=== PATIENT | male | born 1965 | race Two or more races ===

== ENCOUNTER 2017-03-06 16:07 | Emergency (ER) | payer OTHER ==
[2017-03-06 16:14] VITALS: O2SAT 98
[2017-03-06] MEDS ORDERED: KETOROLAC 30 MG/1 ML SDV IVP ONE (16:21)
[2017-03-06] MEDS ORDERED: ONDANSETRON 4 MG/2 ML VIAL IVP ONE (16:21)
[2017-03-06] MEDS ORDERED: NS 1,000 ML IV ONE (16:21)
--- NOTE | 2017-03-06 16:22 | EDPHY ---
H & P Stated Complaint: r flank and lower quad pain with hx kidney stones Source: Patient Exam Limitations: No limitations - Personal History Current Tetanus/Diphtheria Vaccine: Yes - Medical/Surgical History Hx Asthma: No Hx Chronic Respiratory Disease: No Hx Diabetes: No Hx Cardiac Disease: No Hx Renal Disease: No Hx Cirrhosis: No Hx Alcoholism: No Hx HIV/AIDS: No Hx Splenectomy or Spleen Trauma: No Other PMH: kidney stones - Social History Smoking Status: Never smoked Time Seen by Provider: 03/06/17 16:20 HPI/ROS: HPI: This is a 51-year-old male who presents with Chief Complaint: Right lower quadrant and right flank pain since 9:00 a.m. Location: Right lower quadrant and right flank Quality: Pain Duration: Since 9:00 a.m. (7 hours) Signs and Symptoms: no fever, no nausea, no vomiting, no hematemesis, no blood in stool, no abdominal bloating, no diarrhea, no back pain, no urinary symptoms , no testicular/groin pain, no indigestion, no chest pain, no shortness of breath Timing: Sudden, waxes and wane Severity: Moderate Context: Patient has a history of kidney stones, last seen in the emergency room 2 years ago at this facility that was not able to pass on its own and required surgery per patient while he was in [place], presents with complaints of sudden onset of right flank and right lower quadrant pain that started around 9:00 a.m. pain is described as initially sharp, nonradiating in nature, but it waxed and wane. Patient took some Advil with some mild relief. Was at work when the pain started. Denies any heavy lifting/injury/back pain/ radiculopathy/weakness. Patient reports that he ate 2 meals today without difficulty or nausea and vomiting. Last urination was 2 hr prior to arrival. Has not seen any blood in his urine. Patient in the past had [employer] insurance but he no longer does. He would like to establish care with a local urologist. Modifying Factors: Abdomen mild relief Comment: ROS: see HPI Constitutional: No fever, no chills, no weight loss Eyes: No blurred vision Respiratory: No shortness of breath, no cough Cardiovascular: No chest pain, no palpitations Gastrointestinal: No nausea, no vomiting, no diarrhea, no hematemesis, no blood in stool Genitourinary: No dysuria, no blood in urine Extremities: No myalgias, no edema Neurologic: No weakness, no numbness Skin: No rashes, no petechiae Hematologic: No bruising, no bleeding MEDICAL/SURGICAL/SOCIAL HISTORY: Medical history: Kidney stone Surgical history: Denies Social history: Employed CONSTITUTIONAL: Well-appearing nontoxic overweight male, awake and alert, no obvious distress HEENT: Atraumatic and normocephalic, PERRL, EOMI. Tympanic membranes clear. Oropharynx clear, no exudate and moist pink mucosa. Airway patent. No lymphadenopathy. No meningismus. Cardiovascular: Normal S1/S2, regular rate, regular rhythm, without murmur rub or gallop. PULMONARY/CHEST: Symmetrical and nontender. Clear to auscultation bilaterally. Good air movement. No accessory muscle usage. ABDOMEN: Soft, nondistended, right flank and right lower quadrant tenderness, no rebound, no guarding, no peritoneal signs, no masses or organomegaly. No CVAT. EXTREMITIES: 2/2 pulses, strength 5/5, no deformities, no clubbing, no cyanosis or edema. NEUROLOGICAL: no focal neuro deficits. GCS 15. SKIN: Warm and dry, no erythema. no rash. Good capillary refill. (Milla Laboy) Constitutional: Initial Vital Signs Temperature (C) 36.5 C 03/06/17 16:11 Heart Rate 70 03/06/17 16:11 Respiratory Rate 17 03/06/17 16:11 Blood Pressure 129/89 H 03/06/17 16:11 O2 Sat (%) 98 03/06/17 16:11 O2 Delivery Mode Room Air Allergies/Adverse Reactions: No Known Allergies Allergy (Verified 03/06/17 16:11) Home Medications: Medication Instructions Recorded Ondansetron Odt [Zofran Odt 4 mg 4 mg PO Q4 PRN #12 tab 03/06/17 (*)] Tamsulosin HCl [Flomax 0.4 MG (*)] 0.4 mg PO DAILY #7 cap 03/06/17 Tylenol #3 (*) 03/06/17 oxyCODONE/APAP 5/325 [Percocet 1 - 2 tab PO Q4H PRN #20 tab 03/06/17 5/325 (*)] Medical Decision Making - Diagnostics Imaging Results: Imaging Impressions Abdomen/Pelvis CT 03/06/17 16:21 Impression: 1. Moderate right-sided hydronephrosis with perinephric stranding secondary to distal right ureteral calculus just above the UVJ measuring 4 x 4 x 5 mm. 2. No significant abnormality otherwise identified within the abdomen and pelvis. Attention: This CT examination is specifically designed to evaluate patients who are clinically suspected of having acute obstructive uropathy. This examination does not use radiographic contrast, and as such, provides only a limited evaluation of the abdomen, pelvis and retroperitoneum. If there is further clinical suspicion for pathological conditions other than obstructive uropathy, a complete CT evaluation of the abdomen and pelvis utilizing intravenous, oral, and rectal contrast should be considered. Findings discussed with Milla Laboy PAC at 16:58 hour, 03/06/2017. ED Course/Re-evaluation: Labs, urinalysis, IV fluids, IV medications, oral medications, CT abdomen and pelvis scan without contrast ordered As patient has a history kidney stones will evaluate for ureterolithiasis 1st and then if negative will evaluate for appendicitis Given 1 L normal saline, IV Toradol, p.o. Flomax, IV Dilaudid with adequate relief of pain Vital signs reviewed upon arrival and within normal limits. Labs reviewed: Creatinine 1.2; mild leukocytosis most likely reactive Called by Radiology who advised that CT abdomen and pelvis scan shows a 5 x 4 x 4 mm stone just above the right UVJ; [id number] hydronephrosis. Reassessed patient; pain controlled. Passed p.o. trial. Appropriate to treat outpatient This patient was seen under the supervision of my secondary supervising physician. I evaluated care for this patient independently. (Milla Laboy) I did not see this patient while he was in the emergency department. However his care was discussed with the PA while the patient was in the department. I agree with treatment plan and management (Eusebio Amin) Differential Diagnosis: Differential diagnosis includes but is not limited to nephrolithiasis, ureterolithiasis, shingles, appendicitis, diverticulitis, urinary tract infection, sepsis, musculoskeletal strain. (Milla Laboy) - Data Points Laboratory Results: Laboratory Results 03/06/17 16:29 03/06/17 16:29 03/06/17 03/06/17 03/06/17 16:53 16:29 16:29 WBC 12.09 10^3/uL H 10^3/uL (3.80-9.50) RBC 4.61 10^6/uL 10^6/uL (4.40-6.38) Hgb 15.1 g/dL g/dL (13.7-17.5) Hct 41.0 % % (40.0-51.0) MCV 88.9 fL fL (81.5-99.8) MCH 32.8 pg pg (27.9-34.1) MCHC 36.8 g/dL H g/dL (32.4-36.7) RDW 12.6 % % (11.5-15.2) Plt Count 282 10^3/uL 10^3/uL (150-400) MPV 9.5 fL fL (8.7-11.7) Neut % (Auto) 76.8 % H % (39.3-74.2) Lymph % (Auto) 14.1 % L % (15.0-45.0) [place] % (Auto) 7.9 % % (4.5-13.0) Eos % (Auto) 0.4 % L % (0.6-7.6) Baso % (Auto) 0.4 % % (0.3-1.7) Nucleat RBC Rel Count 0.0 % % (0.0-0.2) Absolute Neuts (auto) 9.27 10^3/uL H 10^3/uL (1.70-6.50) Absolute Lymphs (auto) 1.71 10^3/uL 10^3/uL (1.00-3.00) Absolute Monos (auto) 0.96 10^3/uL H 10^3/uL (0.30-0.80) Absolute Eos (auto) 0.05 10^3/uL 10^3/uL (0.03-0.40) Absolute Basos (auto) 0.05 10^3/uL 10^3/uL (0.02-0.10) Absolute Nucleated RBC 0.00 10^3/uL 10^3/uL (0-0.01) Immature Gran % 0.4 % % (0.0-1.1) Immature Gran # 0.05 10^3/uL 10^3/uL (0.00-0.10) Sodium 139 mEq/L mEq/L (135-145) Potassium 3.8 mEq/L mEq/L (3.5-5.2) Chloride 107 mEq/L mEq/L (97-110) Carbon Dioxide 21 mEq/l L mEq/l (22-31) Anion Gap 11 mEq/L mEq/L (8-16) BUN 17 mg/dL mg/dL (7-23) Creatinine 1.2 mg/dL mg/dL (0.7-1.3) Estimated GFR > 60 Glucose 97 mg/dL mg/dL (70-100) Calcium 9.4 mg/dL mg/dL (8.5-10.4) Total Bilirubin 3.4 mg/dL H mg/dL (0.1-1.4) Conjugated Bilirubin 0.4 mg/dL mg/dL (0.0-0.5) Unconjugated Bilirubin 3.0 mg/dL H mg/dL (0.0-1.1) AST 19 IU/L IU/L (17-59) ALT 27 IU/L IU/L (21-72) Alkaline Phosphatase 74 IU/L IU/L (38-126) Total Protein 6.9 g/dL g/dL (6.3-8.2) Albumin 4.3 g/dL g/dL (3.5-5.0) Lipase 64 IU/L IU/L (23-300) Urine Color YELLOW Urine Appearance CLEAR Urine pH 6.0 (5.0-7.5) Ur Specific [place] 1.004 (1.002-1.030) Urine Protein NEGATIVE (NEGATIVE) Urine Ketones NEGATIVE (NEGATIVE) Urine Blood 2+ H (NEGATIVE) Urine Nitrate NEGATIVE (NEGATIVE) Urine Bilirubin NEGATIVE (NEGATIVE) Urine Urobilinogen NEGATIVE EU EU (0.2-1.0) Ur Leukocyte Esterase NEGATIVE (NEGATIVE) Urine RBC 1-3 /hpf /hpf (0-3) Urine WBC 1-3 /hpf /hpf (0-3) Ur Epithelial Cells NONE SEEN /lpf /lpf (NONE-1+) Urine Glucose NEGATIVE (NEGATIVE) Medications Given: Discontinued Medications Hydromorphone HCl (Dilaudid) 1 mg IVP EDNOW ONE Stop: 03/06/17 16:24 Last Admin: 03/06/17 17:01 Dose: Not Given Sodium Chloride (Ns) 1,000 mls @ 0 mls/hr IV ONCE ONE; Wide Open PRN Reason: Protocol Stop: 03/06/17 16:22 Last Admin: 03/06/17 16:45 Dose: 1,000 mls Ketorolac Tromethamine (Toradol) 30 mg IVP EDNOW ONE Stop: 03/06/17 16:22 Last Admin: 03/06/17 16:45 Dose: 30 mg Ondansetron HCl (Zofran) 4 mg IVP EDNOW ONE Stop: 03/06/17 16:22 Last Admin: 03/06/17 16:45 Dose: 4 mg Departure - Departure Disposition: Home, Routine, Self-Care Clinical Impression: Ureterolithiasis Hydronephrosis Qualifiers: Hydronephrosis type: with ureteral calculous obstruction Qualified Code(s): N13.2 - Hydronephrosis with renal and ureteral calculous obstruction Condition: Good Instructions: Kidney Stones (ED), Renal Colic (ED), How to Strain Your Urine ( ED) Additional Instructions: Consume a minimum of 8-10 glasses of water or electrolyte fluid replacement drinks that include Gatorade, Powerade, Pedialyte. Strain all urine and keep stone once it passes to give to Urology. Establish care with primary care provider either with internal medicine or [facility]. Follow-up with Urology. Return to the Emergency Room if you spike a fever > 102 F, or experience intractable abdominal pain/nausea/vomiting. Referrals: Karlie Escobar MD [[facility] Primary Care Provider] - As per Instructions Clemente Navarro MD [Medical Doctor] - As per Instructions [facility],. [Clinic] - As per Instructions Prescriptions: Ondansetron Odt [Zofran Odt 4 mg (*)] 4 mg PO Q4 PRN #12 tab PRN Reason: Nausea/Vomiting, Use 1st oxyCODONE/APAP 5/325 [Percocet 5/325 (*)] 1 - 2 tab PO Q4H PRN #20 tab PRN Reason: Pain, Severe Tamsulosin HCl [Flomax 0.4 MG (*)] 0.4 mg PO DAILY #7 cap
[2017-03-06] MEDS ORDERED: HYDROmorphONE/DILAUDID 1 MG/ML INJ IVP ONE (16:23)
[2017-03-06 16:42] LABS: PLATELET COUNT 282 10^3/uL (150-400)
[2017-03-06 17:22] VITALS: BP 114/79; PULSE 75; RESP 16; TEMP 98.4
== END 2017-03-06 17:35 | disposition home or self-care (01) ==
DX: N13.2 Hydronephrosis with renal and ureteral calculous obstruction (principal); E86.9 Volume depletion, unspecified
CPT/HCPCS: 96374; J1885; J2405

== ENCOUNTER → 2017-03-20 | Outpatient (CLI) | payer OTHER | LOC: BMCIMAGING 15:02 | PROVIDERS: ATTEND Urology | DX: N20.1 Calculus of ureter (principal) ==

== ENCOUNTER → 2017-04-28 | Outpatient (CLI) | payer OTHER | LOC: BMCIMAGING 09:27 | PROVIDERS: ATTEND Urology | DX: Z09 Encounter for follow-up examination after completed treatment for conditions other than malignant neoplasm (principal); N28.1 Cyst of kidney, acquired ==